=== PATIENT | female | born 1950 | race Caucasian/White ===

== ENCOUNTER 2017-05-28 15:43 | Inpatient (IN) | payer OTHER ==
[2017-05-28 17:06] LABS: ADD MAN DIFF? NO
[2017-05-28 17:11] LABS: BASOPHILS % 0.2 % (0.0-2.0); EOSINOPHILS % 0.1 % (0.0-7.0); HEMATOCRIT 36.9 % (37.0-47.0); HEMOGLOBIN 12.1 g/dl (12.0-16.0); LYMPHOCYTES # 1.5 10^3/ul (0.8-2.9); LYMPHOCYTES % 12.9 % (15.0-51.0); MEAN CORPUSCULAR HGB CONC 32.8 g/dl (32.0-37.0); MEAN CORPUSCULAR VOLUME 79.2 fl (82.0-101.0); MEAN PLATELET VOLUME 9.5 fl (7.4-10.4); MONOCYTE # 0.9 10^3/ul (0.3-0.9); MONOCYTES % 7.8 % (0.0-11.0); NEUTROPHIL # 9.3 10^3/ul (1.6-7.5); NEUTROPHILS % 78.5 % (39.0-77.0); PLATELET COUNT 210 10^3/UL (140-415); RED BLOOD COUNT 4.66 10^6/ul (4.20-5.40); RED CELL DISTRIBUTION WIDTH 14.6 % (11.5-14.5)
[2017-05-28 17:11] LABS: WHITE BLOOD COUNT 11.9 10^3/ul (4.8-10.8)
[2017-05-28] MEDS: ACETAMINOPHEN 325 MG TAB PO (17:13)
[2017-05-28] MEDS: LORAZEPAM 0.5 MG TAB PO (17:13)
[2017-05-28 17:27] LABS: PROTIME 13.3 Sec (11.9-14.9)
[2017-05-28 17:28] LABS: PARTIAL THROMBOPLASTIN TIME 29.7 Sec (25.0-35.0)
[2017-05-28 17:32] LABS: ANION GAP 12 (8-16); BLOOD UREA NITROGEN 18 mg/dl (7-20); CALCIUM 9.3 mg/dl (8.4-10.2); CARBON DIOXIDE 30 mmol/L (21-31); CHLORIDE 96 mmol/L (97-110); CREATININE 0.84 mg/dl (0.44-1.00); GLUCOSE 113 mg/dl (70-220); POTASSIUM 3.4 mmol/L (3.5-5.1); SODIUM 135 mmol/L (135-144)
[2017-05-28] MEDS: ASPIRIN 325 MG TAB PO (17:34)
[2017-05-28 17:43] LABS: TROPONIN-I 0.014 ng/ml (0.00-0.12)
[2017-05-28] MEDS ORDERED: IOHEXOL 100 ML (17:48)
[2017-05-28] MEDS ORDERED: SOD CHLORIDE 0.9% 100 ML (17:48)
[2017-05-28] MEDS ORDERED: ONDANSETRON 4 MG INJ IV (19:30)
[2017-05-28] MEDS ORDERED: ACETAMINOPHEN 325 MG TAB PO (19:30)
[2017-05-28] MEDS ORDERED: hydrALAzine 20 MG INJ IV (22:00)
[2017-05-29] MEDS: SENNA TAB PO ×2 (02:23→23:42)
[2017-05-29] MEDS: ATENOLOL 50 MG TAB PO ×3 (02:24→20:24)
[2017-05-29] MEDS: POTASSIUM CHLORIDE 20 MEQ in DEXTROSE 5% 100 ML IVPB (02:25)
[2017-05-29 07:58] LABS: ADD MAN DIFF? NO
[2017-05-29 08:16] LABS: HEMOGLOBIN A1C 5.9 % (0-5.9)
[2017-05-29 08:17] LABS: WHITE BLOOD COUNT 9.7 10^3/ul (4.8-10.8)
[2017-05-29 08:17] LABS: BASOPHILS % 0.2 % (0.0-2.0); EOSINOPHILS % 0.2 % (0.0-7.0); HEMATOCRIT 35.7 % (37.0-47.0); HEMOGLOBIN 11.8 g/dl (12.0-16.0); LYMPHOCYTES # 1.3 10^3/ul (0.8-2.9); LYMPHOCYTES % 13.8 % (15.0-51.0); MEAN CORPUSCULAR HEMOGLOBIN 26.1 pg (29.0-33.0); MEAN CORPUSCULAR HGB CONC 33.1 g/dl (32.0-37.0); MEAN PLATELET VOLUME 10.4 fl (7.4-10.4); MONOCYTE # 0.9 10^3/ul (0.3-0.9); MONOCYTES % 9.3 % (0.0-11.0); NEUTROPHIL # 7.4 10^3/ul (1.6-7.5); NEUTROPHILS % 76.2 % (39.0-77.0); PLATELET COUNT 216 10^3/UL (140-415); RED BLOOD COUNT 4.52 10^6/ul (4.20-5.40); RED CELL DISTRIBUTION WIDTH 14.3 % (11.5-14.5)
[2017-05-29 08:24] LABS: INR 1.04; PROTIME 13.7 Sec (11.9-14.9); PT RATIO 1.1
[2017-05-29 08:25] LABS: PARTIAL THROMBOPLASTIN TIME 32.6 Sec (25.0-35.0)
[2017-05-29 08:35] LABS: CHOL/HDL RATIO 3.6 RATIO; HDL CHOLESTEROL 58 mg/dl (35-98); LDL CHOLESTEROL,CALCULATED 134 mg/dl; TRIGLYCERIDES 88 mg/dl (0-149)
[2017-05-29 08:35] LABS: CHOLESTEROL 210 mg/dl (100-200)
[2017-05-29 08:36] LABS: ANION GAP 16 (8-16); BLOOD UREA NITROGEN 13 mg/dl (7-20); CARBON DIOXIDE 25 mmol/L (21-31); CHLORIDE 101 mmol/L (97-110); CREATININE 0.85 mg/dl (0.44-1.00); GLUCOSE 99 mg/dl (70-220); POTASSIUM 3.5 mmol/L (3.5-5.1); SODIUM 138 mmol/L (135-144)
[2017-05-29 08:51] LABS: FREE T4 (FREE THYROXINE) 1.41 ng/dl (0.78-2.44)
[2017-05-29] MEDS: ASPIRIN (EC) 325 MG TAB PO (09:18)
[2017-05-29] MEDS: ACETAMINOPHEN 325 MG TAB PO ×2 (11:46→20:26)
[2017-05-29] MEDS: ONDANSETRON 4 MG INJ IV (14:46)
[2017-05-29] MEDS: ATORVASTATIN 80 MG TAB PO (20:24)
[2017-05-29] MEDS ORDERED: ATORVASTATIN 20 MG TAB PO (21:00)
[2017-05-29] MEDS ORDERED: ATORVASTATIN 40 MG TAB PO (21:00)
[2017-05-30] MEDS: ACETAMINOPHEN 325 MG TAB PO (01:48)
[2017-05-30] MEDS: SENNA TAB PO (07:24)
[2017-05-30 07:50] LABS: ADD MAN DIFF? NO
[2017-05-30 07:54] LABS: BASOPHILS % 0.3 % (0.0-2.0); EOSINOPHILS # 0.1 10^3/ul (0.0-0.5); EOSINOPHILS % 1.2 % (0.0-7.0); HEMATOCRIT 36.4 % (37.0-47.0); HEMOGLOBIN 11.7 g/dl (12.0-16.0); LYMPHOCYTES # 1.8 10^3/ul (0.8-2.9); LYMPHOCYTES % 23.7 % (15.0-51.0); MEAN CORPUSCULAR HEMOGLOBIN 25.8 pg (29.0-33.0); MEAN CORPUSCULAR HGB CONC 32.1 g/dl (32.0-37.0); MEAN CORPUSCULAR VOLUME 80.2 fl (82.0-101.0); MEAN PLATELET VOLUME 9.9 fl (7.4-10.4); MONOCYTE # 0.7 10^3/ul (0.3-0.9); MONOCYTES % 9.5 % (0.0-11.0); NEUTROPHIL # 4.9 10^3/ul (1.6-7.5); NEUTROPHILS % 65.2 % (39.0-77.0); PLATELET COUNT 217 10^3/UL (140-415); RED BLOOD COUNT 4.54 10^6/ul (4.20-5.40); RED CELL DISTRIBUTION WIDTH 14.3 % (11.5-14.5)
[2017-05-30 07:54] LABS: WHITE BLOOD COUNT 7.5 10^3/ul (4.8-10.8)
[2017-05-30 08:40] LABS: ANION GAP 13 (8-16); BLOOD UREA NITROGEN 14 mg/dl (7-20); CALCIUM 9.1 mg/dl (8.4-10.2); CARBON DIOXIDE 27 mmol/L (21-31); CHLORIDE 101 mmol/L (97-110); CREATININE 0.98 mg/dl (0.44-1.00); GLUCOSE 142 mg/dl (70-220); POTASSIUM 3.4 mmol/L (3.5-5.1); SODIUM 138 mmol/L (135-144)
[2017-05-30] MEDS: ASPIRIN (EC) 325 MG TAB PO (09:18)
[2017-05-30] MEDS: PANTOPRAZOLE (EC) 40 MG TAB PO (09:19)
[2017-05-30] MEDS: ATENOLOL 50 MG TAB PO (09:19)
== END 2017-05-30 16:00 | disposition home health service (06) | DRG 66 ==
LOC: E/R 15:43 → TEL 19:07
DX: I63.9 Cerebral infarction, unspecified (principal); I48.91 Unspecified atrial fibrillation; I10 Essential (primary) hypertension; E78.5 Hyperlipidemia, unspecified
CPT/HCPCS: 36415; 70450; 70496; 70498; 70551; 71010; 80048; 80061; 83036; 84439; 84443; 84484; 85025; 85610; 85730; 93005; 93306; 93880; 97163; 99291-25